=== PATIENT | female | born 1965 | race African-American/Black ===

== ENCOUNTER 2017-12-21 17:17 | Inpatient (IN) | payer BC ==
[2017-12-21] VITALS (7 sets, daily range): BP systolic 129–153; BP diastolic 63–90; PULSE 100–129; RESP 16–25; TEMP 98–101; O2SAT 95–100
[~2017-12-21] VITALS: Ht 170.2 cm; Wt 109.0 kg
[~2017-12-21 17:17] MED LIST: AMLO2.5T PO; TRIA40P INJ
[2017-12-21] MEDS ORDERED: SODIUM CHLOR 0.9% 1000 ML INJ 1,000 ML IV ONE ×2 (17:40)
[2017-12-21] MEDS ORDERED: SODIUM CHLOR 0.9% 1000 ML INJ 400 ML IV ONE (17:40)
--- NOTE | 2017-12-21 17:42 | PD ---
HPI Chief Complaint: Fever Time Seen by Provider: 17:36 Travel History International Travel<30 days: No Contact w/Intl Traveler<30days: No Traveled to known affect area: No History of Present Illness HPI 52-year-old female with history of hypertension presents emergency department for evaluation of acute onset fever, body aches, chills today approximately 4 hours ago. Patient states up until today she has been well. She denies any recent illnesses. No recent travel. No cough or chest congestion. She denies any urinary symptoms. No nausea, vomiting, diarrhea. Patient has no other symptoms to report at this time. PFSH Past Medical History Autoimmune Disease: No Blood Disorders: No Anxiety: No Depression: No Cancer: No Cardiovascular Problems: No Chemotherapy: No Endocrine: No Gastrointestinal Disorders: No Genitourinary: No Headaches: Yes Hypertension: Yes Musculoskeletal: No Neurologic: No Psychiatric: No Respiratory: No Migraines: Yes Radiation Therapy: No Sickle Cell Disease: No ?: Not : 3 Para: 3 Past Surgical History Gynecologic Surgery: Yes Hysterectomy: Yes (2005) Other Surgery: Yes Social History Alcohol Use: Yes (on occasion) Tobacco Use: No Substance Use: No Allergies-Medications (Allergen,Severity, Reaction): Coded Allergies: No Known Allergies (Verified Allergy, Unknown, 12/21/17) Reported Meds & Prescriptions Reported Meds & Active Scripts Active No Active Prescriptions or Reported Medications Review of Systems Except as stated in HPI: all other systems reviewed are Neg Physical Exam Narrative GENERAL: Well-nourished female patient, no acute distress. SKIN: Focused skin assessment warm/dry. HEAD: Atraumatic. Normocephalic. EYES: Pupils equal and round. No scleral icterus. No injection or drainage. ENT: No nasal bleeding or discharge. Mucous membranes pink and moist. NECK: Trachea midline. No JVD. No adenopathy CARDIOVASCULAR: Tachycardic rate and rhythm. No murmur appreciated. RESPIRATORY: No accessory muscle use. Diminished, likely due to girth, to auscultation. Breath sounds equal bilaterally. GASTROINTESTINAL: Abdomen soft, non-tender, nondistended. No guarding. No rebound tenderness. Hepatic and splenic margins not palpable. MUSCULOSKELETAL: No obvious deformities. No clubbing. No cyanosis. No edema. NEUROLOGICAL: Awake and alert. No obvious cranial nerve deficits. Motor grossly within normal limits. Normal speech. PSYCHIATRIC: Appropriate mood and affect; insight and judgment normal. Data Data Last Documented VS Vital Signs Date Time Temp Pulse Resp B/P (MAP) Pulse Ox O2 Delivery O2 Flow Rate FiO2 12/21/17 19:25 20 12/21/17 19:25 99.5 100 146/72 (96) 98 Room Air Orders Orders Sepsis Workup Initiated (12/21/17 ) Electrocardiogram (12/21/17 17:40) Complete Blood Count With Diff (12/21/17:40) Comprehensive Metabolic Panel (12/21/17:40) Prothrombin Time / Inr (Pt) (12/21/17:40) Act Partial Throm Time (Ptt) (12/21/17:40) Lactic Acid Sepsis Protocol (12/21/17:40) Urinalysis - C+S If Indicated (12/21/17 17:40) Influenzae A/B Antigen (12/21/17 17:40) Blood Culture (12/21/17 17:40) Chest, Single Ap (12/21/17:40) Blood Glucose (12/21/17 17:40) Ecg Monitoring (12/21/17 17:40) Iv Access Insert/Monitor (12/21/17 17:40) Oximetry (12/21/17 17:40) Oxygen Administration (12/21/17 17:40) Sodium Chlor 0.9% 1000 Ml Inj (Ns 1000 M (12/21/17 17:40) Sodium Chlor 0.9% 1000 Ml Inj (Ns 1000 M (12/21/17 17:40) Sodium Chlor 0.9% 1000 Ml Inj (Ns 1000 M (12/21/17 17:40) Acetaminophen (Tylenol) (12/21/17 17:45) Vancomycin Inj (Vancomycin Inj) (12/21/17 19:00) Piperacil-Tazo 3.375 Gm Premix (Zosyn 3. (12/21/17 19:00) Admit Order (Ed Use Only) (12/21/17 19:43) Labs Laboratory Tests Test 12/21/17 17:50 12/21/17 18:10 White Blood Count 15.4 TH/MM3 Red Blood Count 4.29 MIL/MM3 Hemoglobin 12.3 GM/DL Hematocrit 37.5 % Mean Corpuscular Volume 87.4 FL Mean Corpuscular Hemoglobin 28.6 PG Mean Corpuscular Hemoglobin Concent 32.8 % Red Cell Distribution Width 13.4 % Platelet Count 237 TH/MM3 Mean Platelet Volume 8.7 FL Neutrophils (%) (Auto) 91.4 % Lymphocytes (%) (Auto) 3.9 % Monocytes (%) (Auto) 4.3 % Eosinophils (%) (Auto) 0.2 % Basophils (%) (Auto) 0.2 % Neutrophils # (Auto) 14.1 TH/MM3 Lymphocytes # (Auto) 0.6 TH/MM3 Monocytes # (Auto) 0.7 TH/MM3 Eosinophils # (Auto) 0.0 TH/MM3 Basophils # (Auto) 0.0 TH/MM3 CBC Comment DIFF FINAL Differential Comment Prothrombin Time 10.2 SEC Prothromb Time International Ratio 1.0 RATIO Activated Partial Thromboplast Time 23.9 SEC Blood Urea Nitrogen 14 MG/DL Creatinine 1.05 MG/DL Random Glucose 116 MG/DL Total Protein 8.1 GM/DL Albumin 3.6 GM/DL Calcium Level 9.3 MG/DL Alkaline Phosphatase 94 U/L Aspartate Amino Transf (AST/SGOT) 27 U/L Alanine Aminotransferase (ALT/SGPT) 19 U/L Total Bilirubin 0.9 MG/DL Sodium Level 140 MEQ/L Potassium Level 4.1 MEQ/L Chloride Level 105 MEQ/L Carbon Dioxide Level 22.8 MEQ/L Anion Gap 12 MEQ/L Estimat Glomerular Filtration Rate 66 ML/MIN Lactic Acid Level 1.4 mmol/L Urine Color YELLOW Urine Turbidity CLEAR Urine pH 7.5 Urine Specific [place] 1.016 Urine Protein NEG mg/dL Urine Glucose (UA) NEG mg/dL Urine Ketones 40 mg/dL Urine Occult Blood NEG Urine Nitrite NEG Urine Bilirubin NEG Urine Urobilinogen LESS THAN 2.0 MG/DL Urine Leukocyte Esterase NEG Urine RBC LESS THAN 1 /hpf Urine WBC 1 /hpf Urine Squamous Epithelial Cells 2 /hpf Urine Mucus FEW /lpf Microscopic Urinalysis Comment CATH-CULT NOT IND MDM Medical Decision Making Medical Screen Exam Complete: Yes Emergency Medical Condition: Yes Medical Record Reviewed: Yes Differential Diagnosis Sepsis versus influenza versus UTI versus URI Narrative Course 52-year-old female presents emergency department for evaluation of acute onset fever, body aches, chills. Patient has no other symptoms to report. Patient is initially febrile and tachycardic. Sepsis recall is initiated. Patient is given Tylenol for fever. Laboratory Tests Test 12/21/17 17:50 12/21/17 18:10 White Blood Count 15.4 TH/MM3 Red Blood Count 4.29 MIL/MM3 Hemoglobin 12.3 GM/DL Hematocrit 37.5 % Mean Corpuscular Volume 87.4 FL Mean Corpuscular Hemoglobin 28.6 PG Mean Corpuscular Hemoglobin Concent 32.8 % Red Cell Distribution Width 13.4 % Platelet Count 237 TH/MM3 Mean Platelet Volume 8.7 FL Neutrophils (%) (Auto) 91.4 % Lymphocytes (%) (Auto) 3.9 % Monocytes (%) (Auto) 4.3 % Eosinophils (%) (Auto) 0.2 % Basophils (%) (Auto) 0.2 % Neutrophils # (Auto) 14.1 TH/MM3 Lymphocytes # (Auto) 0.6 TH/MM3 Monocytes # (Auto) 0.7 TH/MM3 Eosinophils # (Auto) 0.0 TH/MM3 Basophils # (Auto) 0.0 TH/MM3 CBC Comment DIFF FINAL Differential Comment Prothrombin Time 10.2 SEC Prothromb Time International Ratio 1.0 RATIO Activated Partial Thromboplast Time 23.9 SEC Blood Urea Nitrogen 14 MG/DL Creatinine 1.05 MG/DL Random Glucose 116 MG/DL Total Protein 8.1 GM/DL Albumin 3.6 GM/DL Calcium Level 9.3 MG/DL Alkaline Phosphatase 94 U/L Aspartate Amino Transf (AST/SGOT) 27 U/L Alanine Aminotransferase (ALT/SGPT) 19 U/L Total Bilirubin 0.9 MG/DL Sodium Level 140 MEQ/L Potassium Level 4.1 MEQ/L Chloride Level 105 MEQ/L Carbon Dioxide Level 22.8 MEQ/L Anion Gap 12 MEQ/L Estimat Glomerular Filtration Rate 66 ML/MIN Lactic Acid Level 1.4 mmol/L Urine Color YELLOW Urine Turbidity CLEAR Urine pH 7.5 Urine Specific [place] 1.016 Urine Protein NEG mg/dL Urine Glucose (UA) NEG mg/dL Urine Ketones 40 mg/dL Urine Occult Blood NEG Urine Nitrite NEG Urine Bilirubin NEG Urine Urobilinogen LESS THAN 2.0 MG/DL Urine Leukocyte Esterase NEG Urine RBC LESS THAN 1 /hpf Urine WBC 1 /hpf Urine Squamous Epithelial Cells 2 /hpf Urine Mucus FEW /lpf Microscopic Urinalysis Comment CATH-CULT NOT IND Last Impressions Chest X-Ray 12/21/17 3340 Signed Impressions: Service Date/Time: Thursday, December 21, 2017 17:47 - CONCLUSION: No acute disease. Maulik Iyer MD Findings are discussed with my attending physician. We feel it is her best interest to be admitted for further evaluation and IV hydration. Sepsis Criteria SIRS Criteria (2 or more): Heart rate over 90, WBC > 49982, < 4000 or > 10% bands Diagnosis Primary Impression: SIRS (systemic inflammatory response syndrome) Additional Impression: Fever of undetermined origin Admitting Information Admitting Physician Requests: Observation Scripts No Active Prescriptions or Reported Meds Condition: Stable SrKita fosterole WILCOX December 21, 2017 17:42
[2017-12-21] MEDS ORDERED: ACETAMINOPHEN 500 MG CPLT PO ONE (17:45)
--- NOTE | 2017-12-21 17:55 | RADRPT ---
EXAM DATE/TIME: 12/21/2017 17:47 [facility] COMPARISON: No previous studies available for comparison. INDICATIONS : Vomiting, short of breath. MEDICAL HISTORY : None. SURGICAL HISTORY : None. ENCOUNTER: Initial ACUITY: 1 day PAIN SCORE: 0/10 LOCATION: Bilateral chest FINDINGS: A single view of the chest demonstrates the lungs to be symmetrically aerated without evidence of mas s, infiltrate or effusion. The cardiomediastinal contours are unremarkable. Osseous structures are intact. CONCLUSION: No acute disease. Maulik Iyer MD on December 21, 2017 at 17:53 Board Certified Radiologist. This report was verified electronically.
[2017-12-21 18:06] LABS: AUTOMATED NEUTROPHIL # 14.1 TH/MM3 (1.8-7.7); BASOPHIL % 0.2 % (0.0-2.0); EOSINOPHIL % 0.2 % (0.0-4.0); HEMATOCRIT 37.5 % (35.0-46.0); HEMOGLOBIN 12.3 GM/DL (11.6-15.3); LYMPH % 3.9 % (9.0-44.0); LYMPHOCYTE # 0.6 TH/MM3 (1.0-4.8); MEAN CELL VOLUME 87.4 FL (80.0-100.0); MEAN CORPUSCULAR HEMOGLOBIN 28.6 PG (27.0-34.0); MEAN CORPUSCULAR HGB CONC 32.8 % (32.0-36.0); MEAN PLATELET VOLUME 8.7 FL (7.0-11.0); MONO % 4.3 % (0.0-8.0); MONOCYTE # 0.7 TH/MM3 (0-0.9); NEUT % 91.4 % (16.0-70.0); PLATELET COUNT 237 TH/MM3 (150-450); RED BLOOD COUNT 4.29 MIL/MM3 (4.00-5.30); RED CELL DISTRIBUTION WIDTH 13.4 % (11.6-17.2); WHITE BLOOD COUNT 15.4 TH/MM3 (4.0-11.0)
[2017-12-21 18:17] LABS: PROTHROMBIN TIME - PATIENT 10.2 SEC (9.8-11.6)
[2017-12-21 18:24] LABS: ALT (GPT) 19 U/L (10-53)
[2017-12-21 18:27] LABS: ALKALINE PHOSPHATASE 94 U/L (45-117); TOTAL BILIRUBIN ADULT 0.9 MG/DL (0.2-1.0); TOTAL PROTEIN 8.1 GM/DL (6.4-8.2)
[2017-12-21 18:38] LABS: ALBUMIN 3.6 GM/DL (3.4-5.0); AST (GOT) 27 U/L (15-37); BICARBONATE 22.8 MEQ/L (21.0-32.0); BLOOD UREA NITROGEN 14 MG/DL (7-18); CALCIUM 9.3 MG/DL (8.5-10.1); CHLORIDE 105 MEQ/L (98-107); CREATININE 1.05 MG/DL (0.50-1.00); GLOMERULAR FILTRATION RATE 66 ML/MIN (>89); GLUCOSE,RANDOM 116 MG/DL (74-106); SODIUM (NA) 140 MEQ/L (136-145)
[2017-12-21 18:44] LABS: BILIRUBIN, URINE NEG (NEG); BLOOD, URINE NEG (NEG); GLUCOSE,URINE NEG (NEG); KETONE, URINE 40 mg/dL (NEG); MUCUS URINE FEW /lpf (OCC); NITRITE,URINE NEG (NEG); PH, URINE 7.5 (5.0-8.5); SQUAMOUS EPITHELIAL CELL URINE 2 /hpf (0-5); URINE COLOR YELLOW (YELLW/STRAW); URINE LEUKOCYTE ESTERASE NEG (NEG)
[2017-12-21] MEDS ORDERED: PIPERACIL-TAZO 3.375 GM PREMIX 50 ML IV ONE (19:00)
[2017-12-21] MEDS ORDERED: VANCOMYCIN INJ 1,000 MG in SODIUM CHLOR 0.9% 250 ML INJ 250 ML IV ONE (19:00)
[2017-12-21] MEDS ORDERED: SODIUM CHLORIDE 0.9% FLUSH 10 ML FLUSH IV FLUSH PRN (20:15)
[2017-12-21] MEDS ORDERED: Vancomycin Consult Pharmacy 1 EA OTHER SCH (20:15)
[2017-12-21] MEDS ORDERED: NALOXONE HCL 0.4 MG/ML AMP IV PUSH PRN (20:15)
[2017-12-21] MEDS ORDERED: cloNIDine HCL 0.1 MG TAB PO PRN (20:30)
--- NOTE | 2017-12-21 20:37 | HHI.HP ---
[facility] Unknown Admission Diagnosis fever of unk determination Diagnoses: Travel History International Travel<30 Days: No Contact w/Intl Traveler <30 Da: No Traveled to Known Affected Are: No History of Present Illness 52-year-old female with a past medical history significant for hypertension presents the emergency department for evaluation of generalized malaise. The patient reports that she started having body aches around 1130 today while she was at work. She endorses subjective fever/chills. She complains of a redness in her eyes without any discharge or changes in vision. No chest pain or shortness of breath. No cough or congestion. No abdominal pain. No nausea/ vomiting/diarrhea. No lateralizing signs/symptoms. Review of Systems Except as stated in HPI: all other systems reviewed are Neg Past Family Social History Past Medical History Hypertension Past Surgical History Hysterectomy Reported Medications Reported Meds & Active Scripts Active No Active Prescriptions or Reported Medications Allergies: Coded Allergies: No Known Allergies (Verified Allergy, Unknown, 12/21/17) Family History Mother with CAD Social History Denies tobacco and illicit drugs. Occasional alcohol. Physical Exam Vital Signs Vital Signs Date Time Temp Pulse Resp B/P (MAP) Pulse Ox O2 Delivery O2 Flow Rate FiO2 12/21/17 19:25 20 12/21/17 19:25 99.5 100 18 146/72 (96) 98 Room Air 12/21/17 18:43 113 18 149/71 (97) 97 Room Air 12/21/17 18:19 91 18 99 Room Air 12/21/17 18:17 99 Room Air 12/21/17 18:17 18 99 Room Air 12/21/17 17:35 100.1 123 25 153/81 (105) 100 Room Air 12/21/17 17:24 101.0 129 18 152/90 (110) 95 Physical Exam GENERAL: -[place] female lying in bed SKIN: No rashes, ecchymoses or lesions. Cool and dry. HEAD: Atraumatic. Normocephalic. No temporal or scalp tenderness. EYES: Pupils equal round and reactive. Extraocular motions intact. No scleral icterus. Bilateral scleral injection without drainage. ENT: Nose without bleeding, purulent drainage or septal hematoma. Throat without erythema, tonsillar hypertrophy or exudate. Uvula midline. Airway patent. NECK: Trachea midline. No JVD or lymphadenopathy. Supple, nontender, no meningeal signs. CARDIOVASCULAR: Regular rate and rhythm without murmurs, gallops, or rubs. RESPIRATORY: Clear to auscultation. Breath sounds equal bilaterally. No wheezes , rales, or rhonchi. GASTROINTESTINAL: Abdomen soft, non-tender, nondistended. No hepato-splenomegaly , or palpable masses. No guarding. MUSCULOSKELETAL: Extremities without clubbing, cyanosis, or edema. No joint tenderness, effusion, or edema noted. No calf tenderness. NEUROLOGICAL: Awake and alert. Cranial nerves II through XII intact. Motor and sensory grossly within normal limits. Normal speech. Laboratory Laboratory Tests Test 12/21/17 17:50 12/21/17 18:10 White Blood Count 15.4 Red Blood Count 4.29 Hemoglobin 12.3 Hematocrit 37.5 Mean Corpuscular Volume 87.4 Mean Corpuscular Hemoglobin 28.6 Mean Corpuscular Hemoglobin Concent 32.8 Red Cell Distribution Width 13.4 Platelet Count 237 Mean Platelet Volume 8.7 Neutrophils (%) (Auto) 91.4 Lymphocytes (%) (Auto) 3.9 Monocytes (%) (Auto) 4.3 Eosinophils (%) (Auto) 0.2 Basophils (%) (Auto) 0.2 Neutrophils # (Auto) 14.1 Lymphocytes # (Auto) 0.6 Monocytes # (Auto) 0.7 Eosinophils # (Auto) 0.0 Basophils # (Auto) 0.0 CBC Comment DIFF FINAL Differential Comment Prothrombin Time 10.2 Prothromb Time International Ratio 1.0 Activated Partial Thromboplast Time 23.9 Blood Urea Nitrogen 14 Creatinine 1.05 Random Glucose 116 Total Protein 8.1 Albumin 3.6 Calcium Level 9.3 Alkaline Phosphatase 94 Aspartate Amino Transf (AST/SGOT) 27 Alanine Aminotransferase (ALT/SGPT) 19 Total Bilirubin 0.9 Sodium Level 140 Potassium Level 4.1 Chloride Level 105 Carbon Dioxide Level 22.8 Anion Gap 12 Estimat Glomerular Filtration Rate 66 Lactic Acid Level 1.4 Urine Color YELLOW Urine Turbidity CLEAR Urine pH 7.5 Urine Specific [place] 1.016 Urine Protein NEG Urine Glucose (UA) NEG Urine Ketones 40 Urine Occult Blood NEG Urine Nitrite NEG Urine Bilirubin NEG Urine Urobilinogen LESS THAN 2.0 Urine Leukocyte Esterase NEG Urine RBC LESS THAN 1 Urine WBC 1 Urine Squamous Epithelial Cells 2 Urine Mucus FEW Microscopic Urinalysis Comment CATH-CULT NOT IND Date/Time Source Procedure Growth Status 12/21/17 17:55 Blood Peripheral Aerobic Blood Culture Pending Received 12/21/17 17:55 Blood Peripheral Anaerobic Blood Culture Pending Received 12/21/17 18:10 Nasal Washing Influenza Types A,B Antigen (TIMOTHY) - Final NEGATIVE FOR FLU A AND B ANTIGEN.... Complete Result Diagram: 12/21/17 1750 12/21/17 1750 Caprini VTE Risk Assessment Caprini VTE Risk Assessment: No/Low Risk (score <= 1) Caprini Risk Assessment Model Point Value = 1 Point Value = 2 Point Value = 3 Point Value = 5 Age 41-60 Minor surgery BMI > 25 kg/m2 Swollen legs Varicose veins or History of unexplained or recurrent spontaneous Oral contraceptives or hormone replacement Sepsis (< 1 month) Serious lung disease, including pneumonia (< 1 month) Abnormal pulmonary function Acute myocardial infarction Congestive heart failure (< 1 month) History of inflammatory bowel disease Medical patient at bed rest Age 61-74 Arthroscopic surgery Major open surgery (> 45 min) Laparoscopic surgery (> 45 min) Malignancy Confined to bed (> 72 hours) Immobilizing plaster cast Central venous access Age >= 75 History of VTE Family history of VTE Factor V Leiden Prothrombin [id number] Lupus anticoagulant Anticardiolipin antibodies Elevated serum homocysteine Heparin-induced thrombocytopenia Other congenital or acquired thrombophilia Stroke (< 1 month) Elective arthroplasty Hip, pelvis, or leg fracture Acute spinal cord injury (< 1 month) Prophylaxis Regimen Total Risk Factor Score Risk Level Prophylaxis Regimen 0-1 Low Early ambulation 2 Moderate Order ONE of the following: *Sequential Compression Device (SCD) *Heparin 5000 units SQ BID 3-4 Higher Order ONE of the following medications: *Heparin 5000 units SQ TID *Enoxaparin/Lovenox 40 mg SQ daily (WT < 150 kg, CrCl > 30 mL/min) *Enoxaparin/Lovenox 30 mg SQ daily (WT < 150 kg, CrCl > 10-29 mL/min) *Enoxaparin/Lovenox 30 mg SQ BID (WT < 150 kg, CrCl > 30 mL/min) AND/OR *Sequential Compression Device (SCD) 5 or more Highest Order ONE of the following medications: *Heparin 5000 units SQ TID (Preferred with Epidurals) *Enoxaparin/Lovenox 40 mg SQ daily (WT < 150 kg, CrCl > 30 mL/min) *Enoxaparin/Lovenox 30 mg SQ daily (WT < 150 kg, CrCl > 10-29 mL/min) *Enoxaparin/Lovenox 30 mg SQ BID (WT < 150 kg, CrCl > 30 mL/min) AND *Sequential Compression Device (SCD) Assessment and Plan Assessment and Plan Assessment/plan: 1. SIRS Patient with leukocytosis, fever and tachycardia Chest x-ray negative for acute process UA negative for urinary tract infection Flu negative Patient treated with broad-spectrum antibiotics Continue vancomycin/Zosyn 2. Hypertension Patient not currently on any home antihypertensives Clonidine as needed FEN Heart healthy diet Electrolytes: Monitor and replete as needed NS at 100 cc/hour Physician Certification 2 Midnight Certification Type: Admission for Inpatient Services Order for Inpatient Services The services are ordered in accordance with Medicare regulations or non- Medicare payer requirements, as applicable. In the case of services not specified as inpatient-only, they are appropriately provided as inpatient services in accordance with the 2-midnight benchmark. Estimated LOS (days): 2 2 days is the estimated time the patient will need to remain in the hospital, assuming treatment plan goals are met and no additional complications. Post-Hospital Plan: Not yet determined Jessica Gomez MD December 21, 2017 20:37
[2017-12-21] MEDS ORDERED: PHARMACY ORDERED LAB ONE (21:00)
[2017-12-21] MEDS: ACETAMINOPHEN 325 MG TAB PO PRN (21:35)
[2017-12-21] MEDS: SODIUM CHLORIDE 0.9% FLUSH 10 ML FLUSH IV FLUSH SCH (21:35)
[2017-12-21] MEDS: SODIUM CHLOR 0.9% 1000 ML INJ 1,000 ML IV SCH (21:35)
[2017-12-22] MEDS: PIPERACIL-TAZO 3.375 GM PREMIX 50 ML IV SCH ×2 (02:40→07:10)
[2017-12-22] MEDS: ACETAMINOPHEN 325 MG TAB PO PRN ×2 (02:43→09:54)
[2017-12-22 03:04] VITALS: BP 116/72; PULSE 91; RESP 15; TEMP 98.9; O2SAT 98
[2017-12-22] MEDS: SODIUM CHLOR 0.9% 1000 ML INJ 1,000 ML IV SCH (06:07)
[2017-12-22 06:12] LABS: AUTOMATED NEUTROPHIL # 7.8 TH/MM3 (1.8-7.7); EOSINOPHIL # 0.3 TH/MM3 (0-0.4); EOSINOPHIL % 2.6 % (0.0-4.0); HEMATOCRIT 32.3 % (35.0-46.0); HEMOGLOBIN 10.8 GM/DL (11.6-15.3); LYMPHOCYTE # 1.5 TH/MM3 (1.0-4.8); MEAN CELL VOLUME 87.1 FL (80.0-100.0); MEAN CORPUSCULAR HGB CONC 33.3 % (32.0-36.0); MEAN PLATELET VOLUME 8.6 FL (7.0-11.0); MONO % 6.3 % (0.0-8.0); MONOCYTE # 0.6 TH/MM3 (0-0.9); NEUT % 76.1 % (16.0-70.0); PLATELET COUNT 220 TH/MM3 (150-450); RED BLOOD COUNT 3.71 MIL/MM3 (4.00-5.30); RED CELL DISTRIBUTION WIDTH 13.3 % (11.6-17.2); WHITE BLOOD COUNT 10.2 TH/MM3 (4.0-11.0)
[2017-12-22 06:36] LABS: BICARBONATE 24.6 MEQ/L (21.0-32.0); CALCIUM 8.2 MG/DL (8.5-10.1); CREATININE 1.14 MG/DL (0.50-1.00)
[2017-12-22] MEDS ORDERED: VANCOMYCIN 1,000 MG/NS 250 ML IV SCH ×2 (07:00)
--- NOTE | 2017-12-22 07:44 | HHI.PR ---
Subjective Remarks Follow-up SIRS/FUO December 22, 2017-patient seen and examined, currently afebrile and blood culture negative to date. Patient states she feels some malaise but denies any SOB/CP or dizziness Objective Vitals Vital Signs Date Time Temp Pulse Resp B/P (MAP) Pulse Ox O2 Delivery O2 Flow Rate FiO2 12/22/17 03:45 20 12/22/17 03:04 98.9 91 15 116/72 (87) 98 12/21/17 23:33 98.0 101 16 129/73 (91) 98 12/21/17 21:00 98.1 110 22 136/63 (87) 97 12/21/17 19:25 20 12/21/17 19:25 99.5 100 18 146/72 (96) 98 Room Air 12/21/17 18:43 113 18 149/71 (97) 97 Room Air 12/21/17 18:19 91 18 99 Room Air 12/21/17 18:17 99 Room Air 12/21/17 18:17 18 99 Room Air 12/21/17 17:35 100.1 123 25 153/81 (105) 100 Room Air 12/21/17 17:24 101.0 129 18 152/90 (110) 95 I/O 12/21/17 12/21/17 12/21/17 12/22/17 12/22/17 12/22/17 07:00 15:00 23:00 07:00 15:00 23:00 Intake Total 2750 ml 550 ml Balance 2750 ml 550 ml Intake Oral 250 ml IV Total 2750 ml 300 ml # Voids 3 Result Diagram: 12/22/17 0539 12/22/17 0539 Imaging Last Impressions Chest X-Ray 12/21/17 1740 Signed Impressions: Service Date/Time: Thursday, December 21, 2017 17:47 - CONCLUSION: No acute disease. Maulik Iyer MD Objective Remarks GENERAL: NAD SKIN: Warm and dry. HEAD: Normocephalic. EYES: No scleral icterus. No injection or drainage. NECK: Supple, trachea midline. No JVD or lymphadenopathy. CARDIOVASCULAR: Regular rate and rhythm without murmurs, gallops, or rubs. RESPIRATORY: Breath sounds equal bilaterally. No accessory muscle use. GASTROINTESTINAL: Abdomen soft, non-tender, nondistended. MUSCULOSKELETAL: No cyanosis, or edema. BACK: Nontender without obvious deformity. No CVA tenderness. A/P Problem List: (1) SIRS (systemic inflammatory response syndrome) ICD Code: R65.10 - Systemic inflammatory response syndrome (SIRS) of non- infectious origin without acute organ dysfunction Status: Acute (2) Fever of undetermined origin ICD Code: R50.9 - Fever, unspecified Status: Acute Assessment and Plan 52 years old female with 1. SIRS-now resolved; likely secondary to viral etiology Chest x-ray negative for acute process UA negative for urinary tract infection Flu negative Patient treated with broad-spectrum antibiotics d/c vancomycin/Zosyn 2. Hypertension Patient not currently on any home antihypertensives Clonidine as needed DVT prophylaxis: B-Maulik San MD December 22, 2017 07:44
--- NOTE | 2017-12-22 07:54 | HHI.DCPOC ---
Discharge Care Plan Diagnosis: (1) Viral infection Your Health Problems Are: Inflammation Goals to Promote Your Health * To prevent worsening of your condition and complications * To maintain your health at the optimal level Directions to Meet Your Goals Take your medications as prescribed Follow your dietary instruction Follow activity as directed Keep your appointments as scheduled Take your immunizations and boosters as scheduled If your symptoms worsen call your PCP, if no PCP go to Urgent Care Center or Emergency Room Smoking is Dangerous to Your Health. Avoid second hand smoke Call the 24-hour hour crisis hotline for domestic abuse at [facility] December 22, 2017 07:54
[2017-12-22 07:55] VITALS: BP 125/72; PULSE 69; RESP 16; TEMP 98.2; O2SAT 97
[2017-12-22] MEDS: SODIUM CHLORIDE 0.9% FLUSH 10 ML FLUSH IV FLUSH SCH (09:54)
--- NOTE | 2017-12-22 19:53 | EKG ---
Date Performed: 12/21/2017 Time Performed: 17:44:24 PTAGE: 52 years EKG: SINUS TACHYCARDIA MARKED LEFT AXIS DEVIATION Poor R wave progression. Left anterior fasicul ar block. ABNORMAL ECG NO PREVIOUS TRACING DOCTOR: Patrick Acevedo Interpretating Date/Time 12/22/2017 19:53:09
[2017-12-23] MEDS ORDERED: PHARMACY ORDERED LAB ONE (06:45)
== END 2017-12-22 12:01 | disposition home or self-care (01) | DRG 866 ==
LOC: NEPE 17:17 → NEDA 19:45 → OBSVTOIN 20:27 → NEPFCDU 20:39
PROVIDERS: ADMIT Hospitalist; ATTEND Hospitalist
DX: B34.9 Viral infection, unspecified (principal); I10 Essential (primary) hypertension
CPT/HCPCS: 71045; 80048; 80053; 81001; 83605; 85025; 85610; 85730; 87040; 87804; 93005; 96361; 96365; 96368; J2543; J3370; J7030; J7050

== ENCOUNTER 2018-01-04 02:30 | Emergency (ER) | payer BC ==
[~2018-01-04] VITALS: Ht 170.2 cm; Wt 110.0 kg
[~2018-01-04 02:30] MED LIST changes: -AMLO2.5T PO
[2018-01-04 02:34] VITALS: BP 168/88; PULSE 100; RESP 18; TEMP 99.2; O2SAT 99
--- NOTE | 2018-01-04 04:22 | PD ---
HPI Chief Complaint: Cold / Flu Symptoms Time Seen by Provider: 04:19 Travel History International Travel<30 days: No Contact w/Intl Traveler<30days: No Traveled to known affect area: No History of Present Illness HPI Patient comes in complaining of dry cough, runny nose, body aches, low-grade fever decreased appetite, but denies any evidence of any abdominal pain, nausea , vomiting or diarrhea. Patient denies any alleviating or aggravating factors. Patient also denies any associated factors such as rash. No known drug allergy Past medical history shows history of migraine, hypertension, endometriosis, hysterectomy, PFSH Past Medical History Asthma: No Autoimmune Disease: No Blood Disorders: No Anxiety: No Depression: No Cancer: No Cardiovascular Problems: No Chemotherapy: No Chest Pain: No Congestive Heart Failure: No COPD: No Endocrine: No Gastrointestinal Disorders: No Genitourinary: No Headaches: Yes Hypertension: Yes Musculoskeletal: No Neurologic: No Psychiatric: No Respiratory: No Migraines: Yes Radiation Therapy: No Sickle Cell Disease: No Sleep Apnea: No Tetanus Vaccination: Unknown Influenza Vaccination: No ?: Not : 3 Para: 3 Past Surgical History Gynecologic Surgery: Yes Hysterectomy: Yes Other Surgery: Yes Social History Alcohol Use: Yes (on occasion) Tobacco Use: No Substance Use: No Allergies-Medications (Allergen,Severity, Reaction): Coded Allergies: No Known Allergies (Verified Allergy, Unknown, 01/04/18) Reported Meds & Prescriptions Reported Meds & Active Scripts Active Zithromax Z-Mark (Azithromycin) 250 Mg Dspk 250 Mg PO DIRECTED 500 MG (2 tabs) day 1, then 1 tab days 2-5. Ketorolac (Ketorolac Tromethamine) 10 Mg Tab 10 Mg PO TID PRN 3 Days Tamiflu (Oseltamivir Phosphate) 75 Mg Cap 75 Mg PO BID 5 Days Review of Systems Except as stated in HPI: all other systems reviewed are Neg General / Constitutional: No: Fever Eyes: No: Visual changes HENT: No: Headaches Cardiovascular: No: Chest Pain or Discomfort Respiratory: No: Shortness of Breath Gastrointestinal: No: Abdominal Pain Genitourinary: No: Dysuria Musculoskeletal: No: Pain Skin: No Rash Neurologic: No: Weakness Psychiatric: No: Depression Endocrine: No: Polydipsia Hematologic/Lymphatic: No: Easy Bruising Physical Exam Narrative GENERAL: SKIN: Warm and dry. HEAD: Atraumatic. Normocephalic. EYES: Pupils equal and round. No scleral icterus. No injection or drainage. ENT: No nasal bleeding or discharge. Mucous membranes pink and moist. NECK: Trachea midline. No JVD. CARDIOVASCULAR: Regular rate and rhythm. RESPIRATORY: No accessory muscle use. Clear to auscultation. Breath sounds equal bilaterally. GASTROINTESTINAL: Abdomen soft, non-tender, nondistended. . MUSCULOSKELETAL: Extremities without clubbing, cyanosis, or edema. No obvious deformities. NEUROLOGICAL: Awake and alert. No obvious cranial nerve deficits. Motor grossly within normal limits. Five out of 5 muscle strength in the arms and legs. Normal speech. PSYCHIATRIC: Appropriate mood and affect; insight and judgment normal. Data Data Last Documented VS Orders Orders Urinalysis - C+S If Indicated (01/04/18 04:26) Chest, Pa & Lat (01/04/18 04:26) Ketorolac Inj (Toradol Inj) (01/04/18 04:30) Ed Discharge Order (01/04/18 06:14) Labs Laboratory Tests Test 01/04/18 05:11 Urine Color YELLOW Urine Turbidity HAZY Urine pH 6.0 Urine Specific [place] 1.019 Urine Protein TRACE mg/dL Urine Glucose (UA) NEG mg/dL Urine Ketones NEG mg/dL Urine Occult Blood NEG Urine Nitrite NEG Urine Bilirubin NEG Urine Urobilinogen LESS THAN 2.0 MG/DL Urine Leukocyte Esterase TRACE Urine RBC LESS THAN 1 /hpf Urine WBC 2 /hpf Urine Squamous Epithelial Cells 6 /hpf Urine Mucus FEW /lpf Microscopic Urinalysis Comment CULT NOT INDICATED MDM Medical Decision Making Medical Screen Exam Complete: Yes Emergency Medical Condition: Yes Medical Record Reviewed: Yes Differential Diagnosis Pneumonia versus pneumothorax versus pleural effusion versus viral pneumonia versus bacterial pneumonia Narrative Course xray neg for consolidation, ptx or pl effusion ua neg for uti Diagnosis Primary Impression: Viral infection Patient Instructions: General Instructions, Influenza (DC) Scripts Azithromycin (Zithromax Z-Mark) 250 Mg Dspk 250 MG PO DIRECTED for Infection, #1 DSPK 0 Refills 500 MG (2 tabs) day 1, then 1 tab days 2-5. Prov: Tejinder Clemente MD 01/04/18 Ketorolac (Ketorolac) 10 Mg Tab 10 MG PO TID Y for Pain Management for 3 Days, #14 TAB 0 Refills Prov: Tejinder Clemente MD 01/04/18 Oseltamivir (Tamiflu) 75 Mg Cap 75 MG PO BID for Mgmt Viral Infection for 5 Days, #10 CAP 0 Refills Prov: Tejinder Clemente MD 01/04/18 Disposition: 01 DISCHARGE HOME Condition: Stable Tejinder Clemente MD January 04, 2018 04:22
[2018-01-04] MEDS ORDERED: KETOROLAC TROMETHAMINE 60 MG/2 ML (IM) VIAL IM ONE (04:30)
--- NOTE | 2018-01-04 05:17 | RADRPT ---
EXAM DATE: 01/04/2018 4:50 AM EDT AGE/SEX: 52 years / Female INDICATIONS: Cough, shortness of breath, and general weakness. CLINICAL DATA: This is the patient's initial encounter. Patient reports that signs and symptoms have been present for 1 day and indicates a pain score of 0/10. MEDICAL/SURGICAL HISTORY: Non-responsive. Non-responsive. COMPARISON: [facility] [place], CHEST SINGLE AP, 12/21/2017. . FINDINGS: PA and lateral views of the chest demonstrate the lungs to be symmetrically aerated without evidence of mass, infiltrate or effusion. The cardiomediastinal contours are unremarkable. Osseous structures are intact. CONCLUSION: No evidence of acute cardiopulmonary disease. Electronically signed by: Savage Reina MD 01/04/2018 5:15 AM EDT
[2018-01-04] MEDS ORDERED: KETO10 PO (05:34)
[2018-01-04] MEDS ORDERED: OSEL75 PO (05:34)
[2018-01-04] MEDS ORDERED: ZITHTAB PO (05:36)
[2018-01-04 06:07] LABS: BILIRUBIN, URINE NEG (NEG); BLOOD, URINE NEG (NEG); GLUCOSE,URINE NEG (NEG); KETONE, URINE NEG (NEG); MUCUS URINE FEW /lpf (OCC); NITRITE,URINE NEG (NEG); SQUAMOUS EPITHELIAL CELL URINE 6 /hpf (0-5); URINE COLOR YELLOW (YELLW/STRAW); URINE LEUKOCYTE ESTERASE TRACE (NEG)
== END 2018-01-04 06:54 | disposition home or self-care (01) ==
LOC: NEPE 02:30
DX: B34.9 Viral infection, unspecified (principal)
CPT/HCPCS: 71046; 81001; 96372; 99284; J1885